=== PATIENT | male | born 1990 | race Caucasian/White ===

== ENCOUNTER 2018-03-03 14:32 | Emergency (ER) | payer OTHER ==
--- NOTE | 2018-03-03 14:42 | PDOC ---
Rapid Medical Evaluation Medical Evaluation: I have performed a brief in-person evaluation of this patient. The patient presents with a chief complaint of: Hx autism; C/O L flank pain; had fever of 100.4 today; mother gave him Tylenol around 12:30 PM; denies dysuria, hematuria, n/v/d Pertinent physical exam findings: In NAD, no CVA tenderness I have ordered the following: UA, UCx The patient will proceed to the ED for further evaluation. 03/03/18 14:38
[2018-03-03 14:43] VITALS: BP 112/77; PULSE 82; TEMP 98.4; BMI 25.6
[2018-03-03 15:48] LABS: URINE APPEARANCE CLEAR; URINE BILIRUBIN NEGATIVE (<2.0 mg/dL); URINE COLOR COLORLESS; URINE GLUCOSE (UA) NEGATIVE (NEGATIVE); URINE KETONE NEGATIVE (NEGATIVE); URINE LEUK ESTERASE NEGATIVE (NEGATIVE); URINE NITRITE NEGATIVE (NEGATIVE); URINE PROTEIN NEGATIVE (NEGATIVE); URINE UROBILINOGEN NEGATIVE mg/dL (0.2-1.0)
--- NOTE | 2018-03-03 17:16 | PDOC ---
History of Present Illness - General Chief Complaint: Back Pain Stated Complaint: PAIN Time Seen by Provider: 03/03/18 16:05 - History of Present Illness Initial Comments: 03/03/18 17:11 27-year-old male presents for evaluation of lower back pain times one day. He states he did have a fever yesterday. Of note he is somewhat of a poor historian with mild MR Past History - Past Medical History Home Medications: Ambulatory Orders NK [No Known Home Medication] 03/03/18 - Suicide/Smoking/Psychosocial Hx Smoking History: Never smoked Have you smoked in the past 12 months: No Information on smoking cessation initiated: No Hx Alcohol Use: No Drug/Substance Use Hx: No Review of Systems - Review of Systems Constitutional: Yes: Fever ABD/GI: No: Nausea, Vomiting : No: Burning, Dysuria, Flank Pain, Hematuria Musculoskeletal: Yes: Back Pain *Physical Exam - Vital Signs Last Vital Signs Temp Pulse Resp BP Pulse Ox 98.4 F 82 20 112/77 99 03/03/18 14:39 03/03/18 14:39 03/03/18 14:39 03/03/18 14:39 03/03/18 14:39 - Physical Exam Comments: 03/03/18 17:12 HEAD: NC/AT EYES: Conjuntiva clear Ears: Canals and TM's normal NOSE: No d/c THROAT: Moist mucous membrances, oral pharanx clear, uvula midline NECK: Supple without adenopathy CARDIAC: S1 S2 LUNGS: CTA Full and Equal breath sounds ABDOMEN: Soft NT ND MS: Full ROM in all joints without edema NEUROLOGIC: No gross sensory or motor deficits, NVID SKIN: Normal color and temperature no lesions or rashes Lumbar spine skin color and temperature are normal. Range of motion is limited. There is moderate right and left paralumbar musculature spasm and tenderness. 5 out of 5 strength in bilateral lower extremities without gross sensorimotor deficits. He is neurovascularly intact. Moderate Sedation - Procedure Monitoring Vital Signs: Procedure Monitoring Vital Signs Temperature 98.4 F 03/03/18 14:39 Pulse Rate 82 03/03/18 14:39 Respiratory Rate 20 03/03/18 14:39 Blood Pressure 112/77 03/03/18 14:39 O2 Sat by Pulse Oximetry (%) 99 03/03/18 14:39 ED Treatment Course - ADDITIONAL ORDERS Additional order review: Laboratory Results 03/03/18 15:16 Urine Color Colorless Urine Appearance Clear Urine pH 6.0 Ur Specific [place] 1.003 L Urine Protein Negative Urine Glucose (UA) Negative Urine Ketones Negative Urine Blood Negative Urine Nitrite Negative Urine Bilirubin Negative Urine Urobilinogen Negative Ur Leukocyte Esterase Negative Medical Decision Making - Medical Decision Making 03/03/18 17:15 Urine is negative. There is a finding on physical examination of tender lumbar spine with palpable spasm. I believe this is musculoskeletal pain. *DC/Admit/Observation/Transfer Diagnosis at time of Disposition: Lumbar strain - Discharge Dispostion Disposition: HOME Condition at time of disposition: Stable Decision to Admit order: No - Referrals Referrals: Gautam Degroot MD [Primary Care Provider] - - Patient Instructions Printed Discharge Instructions: DI for Low Back Pain, Low Back Pain Additional Instructions: He may take Tylenol and Motrin as directed for pain and fever. Return to the emergency room should symptoms worsen or go unresolved. Please follow-up with your primary care physician tomorrow for further evaluation and treatment options again she just symptoms go unresolved return to the emergency room. - Post Discharge Activity
== END 2018-03-03 17:18 | disposition home or self-care (01) ==
LOC: JERFT 14:32 → JER 14:32 → JERFT 17:17
DX: M62.830 Muscle spasm of back (principal); F84.0 Autistic disorder
CPT/HCPCS: 81003; 99281-25

== ENCOUNTER 2019-02-07 13:29 | Emergency (ER) | payer OTHER ==
[2019-02-07 13:34] VITALS: BP 126/75; PULSE 93; TEMP 98.3; BMI 21.1
[2019-02-07] MEDS ORDERED: ACETAMINOPHEN 325 MG TABLET (FP) PO ONE (13:52)
[2019-02-07] MEDS ORDERED: ACETAMINOPHEN 325 MG TABLET (FP) ONE (13:53)
--- NOTE | 2019-02-07 13:57 | PDOC ---
History of Present Illness - General Chief Complaint: Pain Stated Complaint: RIB PAIN Time Seen by Provider: 02/07/19 13:42 History Source: Patient, Parent(s) - History of Present Illness Timing/Duration: reports: other Past History - Past Medical History Allergies/Adverse Reactions: Allergies Allergy/AdvReac Type Severity Reaction Status Date / Time No Known Allergies Allergy Verified 02/07/19 13:31 Home Medications: Ambulatory Orders NK [No Known Home Medication] 03/03/18 COPD: No - Psycho Social/Smoking Cessation Hx Smoking History: Never smoked Have you smoked in the past 12 months: No Information on smoking cessation initiated: No Hx Alcohol Use: No Drug/Substance Use Hx: No Review of Systems - Review of Systems Constitutional: No: Chills, Fever Respiratory: Yes: Cough. No: Shortness of Breath, Wheezing *Physical Exam - Vital Signs Last Vital Signs Temp Pulse Resp BP Pulse Ox 98.3 F 93 H 18 126/75 98 02/07/19 13:32 02/07/19 13:32 02/07/19 13:32 02/07/19 13:32 02/07/19 13:32 - Physical Exam General Appearance: Yes: Appropriately Dressed. No: Apparent Distress HEENT: positive: Normal ENT Inspection, Normal Voice, TMs Normal, Pharynx Normal. negative: Scleral Icterus (R), Scleral Icterus (L) Neck: positive: Supple. negative: Lymphadenopathy (R), Lymphadenopathy (L) Respiratory/Chest: positive: Lungs Clear, Normal Breath Sounds. negative: Respiratory Distress, Wheezing Cardiovascular: positive: Regular Rate, S1, S2 Integumentary: positive: Dry, Warm Neurologic: positive: Fully Oriented, Alert, Normal Mood/Affect Medical Decision Making - Medical Decision Making 02/07/19 13:59 28-year-old male, history of autism, brought in by mother for evaluation after patient developed non-productive cough 3 days ago and now with pleuritic right chest pain. No hemoptysis shortness of breath wheezing fever or chills. No history of pneumonia see exam M/l uri Exam wnl Dc w/ supportive tx Discharge - Discharge Information Problems reviewed: Yes Clinical Impression/Diagnosis: Cough Condition: Good Disposition: HOME - Follow up/Referral Referrals: Gautam Degroot MD [Primary Care Provider] - - Patient Discharge Instructions Patient Printed Discharge Instructions: DI for Viral Upper Respiratory Infection -- Adult - Post Discharge Activity
== END 2019-02-07 14:00 | disposition home or self-care (01) ==
LOC: JERFT 13:29
DX: J06.9 Acute upper respiratory infection, unspecified (principal); B97.89 Other viral agents as the cause of diseases classified elsewhere; F84.0 Autistic disorder
CPT/HCPCS: 99282-25

== ENCOUNTER 2019-03-01 14:25 | Emergency (ER) | payer OTHER ==
[2019-03-01 14:33] VITALS: BP 122/75; PULSE 99; TEMP 98.6; BMI 21.1
[2019-03-01] MEDS ORDERED: IBUPROFEN 600 MG TABLET (FP) PO ONE ×2 (17:07→17:16)
[2019-03-01] MEDS ORDERED: guaiFENesin/D-METHORPHAN HB 10 ML UNIT-DOSE CUPS PO ONE (17:08)
--- NOTE | 2019-03-01 17:08 | PDOC ---
History of Present Illness - General Chief Complaint: Cold Symptoms Stated Complaint: CHEST PAIN Time Seen by Provider: 03/01/19 15:20 History Source: Patient Exam Limitations: No Limitations - History of Present Illness Initial Comments: 03/01/19 17:09 28 year old autistic male with continued coughing and pleuritic chest pain seen last week for the same. As per mother he continues with productive coughing with no fever or chills. Also reports no shortness of breath or history of pneumonia. Mother requesting chest xray. Is this a multiple visit Asthma Patient?: No Timing/Duration: reports: week Severity: reports: mild Possible Cause: Yes: other Modifying Factors: improves with: coughing Associated Symptoms: reports: cough Past History - Travel Traveled outside of the country in the last 30 days: No Close contact w/someone who was outside of country & ill: No - Past Medical History Allergies/Adverse Reactions: Allergies Allergy/AdvReac Type Severity Reaction Status Date / Time No Known Allergies Allergy Verified 03/01/19 14:33 Home Medications: Ambulatory Orders Acetaminophen 500 mg PO Q4HWA #20 tablet 03/01/19 Guaifenesin [Robitussin] 10 ml PO Q8H #1 bottle 03/01/19 Loratadine [Claritin] 10 mg PO DAILY #10 tablet 03/01/19 COPD: No Psychiatric Problems: Yes - Psycho Social/Smoking Cessation Hx Smoking History: Never smoked Have you smoked in the past 12 months: No Hx Alcohol Use: No Drug/Substance Use Hx: No Respiratory Specific PMHX - Complaint Specific PMHX Hx Airway Support: No Hx Smoking Exposure: No Hx Allergic Rhinitis: No Hx Pneumonia: No Hx Pulmonary Embolus: No Review of Systems - Review of Systems Able to Perform ROS?: Yes Is the patient limited Azeri proficient: No Constitutional: No: Chills, Fever, Loss of Appetite, Malaise, Night Sweats HEENTM: No: Eye Pain, Cataracts, Ear Pain, Ear Discharge, Nose Congestion, Throat Pain Respiratory: Yes: Cough. No: Shortness of Breath, SOB with Exertion Cardiac (ROS): No: Chest Pain, Lightheadedness, Palpitations ABD/GI: No: Constipated, Nausea, Poor Appetite, Poor Fluid Intake, Vomiting : No: Burning, Hematuria, Incontinence, Pain, Urgency Musculoskeletal: No: Back Pain, Muscle Pain, Muscle Weakness Integumentary: No: Bruising, Erythema Neurological: No: Headache, Numbness, Paresthesia *Physical Exam - Vital Signs Last Vital Signs Temp Pulse Resp BP Pulse Ox 98.6 F 99 H 18 122/75 99 03/01/19 14:30 03/01/19 14:30 03/01/19 14:30 03/01/19 14:30 03/01/19 14:30 - Physical Exam General Appearance: Yes: Nourished, Appropriately Dressed HEENT: positive: EOMI, RAYNA, Pharynx Normal Neck: positive: Supple. negative: Lymphadenopathy (R), Lymphadenopathy (L) Respiratory/Chest: positive: Lungs Clear Cardiovascular: positive: Regular Rhythm, Regular Rate, Other (chest tenderness) Extremity: positive: Normal Capillary Refill Neurologic: positive: Fully Oriented, Alert ED Treatment Course - RADIOLOGY Radiology Studies Ordered: Category Date Time Status CHEST PA & LAT [RAD] Stat Radiology 03/01/19 16:46 Ordered Medical Decision Making - Medical Decision Making 03/01/19 17:14 16 year old male with medical history of hyperactivity and asthma reports chest tightness and shortness of breath since . As per mother he has been using his pump but continues with occasional coughing and reporting discomfort in his chest. Imp: cough pleuritic chest pain Discharge - Discharge Information Problems reviewed: Yes Clinical Impression/Diagnosis: Bronchitis Condition: Stable Disposition: HOME - Admission No - Additional Discharge Information Prescriptions: Acetaminophen 500 mg PO Q4HWA #20 tablet Guaifenesin [Robitussin] 10 ml PO Q8H #1 bottle Loratadine [Claritin] 10 mg PO DAILY #10 tablet - Follow up/Referral Referrals: Gautam Degroot MD [Primary Care Provider] - Call tomorrow (for follow up appointment ) - Patient Discharge Instructions Patient Printed Discharge Instructions: DI for Acute Bronchitis Additional Instructions: Please use humidifier in home take medication as directed Call primary physician for follow up appointment Drink plenty fluids Print Language: GEORGIAN - Post Discharge Activity Work/Back to School Note: Back to Work
[2019-03-01] MEDS ORDERED: guaiFENesin/D-METHORPHAN HB 10 ML UNIT-DOSE CUPS ONE (17:17)
== END 2019-03-01 17:52 | disposition home or self-care (01) ==
LOC: JERFT 14:25
DX: J40 Bronchitis, not specified as acute or chronic (principal)
CPT/HCPCS: 71046-TC-FY; 99281-25

== ENCOUNTER 2023-02-22 19:51 | Emergency (ER) | payer OTHER ==
[2023-02-22 19:56] VITALS: BP 121/70; PULSE 72; RESP 18; TEMP 97.5; BMI 23.5
[2023-02-22] MEDS ORDERED: ONDANSETRON *ODT* 4 MG TABLET SL ONE (20:14)
[2023-02-22] MEDS ORDERED: LIDOCAINE 4% PATCH TP ONE ×2 (20:18→20:27)
[2023-02-22] MEDS ORDERED: ONDANSETRON *ODT* 4 MG TABLET ONE (20:27)
[2023-02-22 21:00] LABS: EPI CELLS >36 /uL (0-25.1); HYALINE CASTS 5 /uL (0-3.1); URINE APPEARANCE CLOUDY; URINE BACTERIA 50 /uL (0-1359); URINE BILIRUBIN NEGATIVE (NEGATIVE); URINE COLOR YELLOW; URINE GLUCOSE (UA) NEGATIVE (NEGATIVE); URINE KETONE 3+ (NEGATIVE); URINE LEUK ESTERASE NEGATIVE (NEGATIVE); URINE NITRITE NEGATIVE (NEGATIVE); URINE PROTEIN 1+ (NEGATIVE); URINE UROBILINOGEN 0.2 mg/dL (0.2-1.0)
[2023-02-22] MEDS ORDERED: KETOROLAC TROMETHAMINE 15 MG/ML VIAL IVPUSH ONE (21:06)
[2023-02-22] MEDS ORDERED: KETOROLAC TROMETHAMINE 15 MG/ML VIAL ONE (21:10)
[2023-02-22 21:26] LABS: BASO % 0.4 % (0-2.0); EOS % 0.4 % (0-4.5); HEMATOCRIT 45.6 % (35.4-49); HEMOGLOBIN 15.8 GM/dL (11.7-16.9); LYMPH % 11.8 % (8-40); MCH 29.4 pg (25.7-33.7); MCHC 34.5 g/dl (32.0-35.9); MEAN CELL VOLUME 85.1 fl (80-96); MEAN PLT VOLUME 8.9 fl (7.5-11.1); MONO % 7.1 % (3.8-10.2); NEUT % 80.3 % (42.8-82.8); PLATELET COUNT 233 10^3/uL (134-434); RBC 5.36 M/mm3 (4.00-5.60); RDW 13.1 % (11.9-15.9); WHITE BLOOD COUNT 9.8 K/mm3 (4.0-10.0)
[2023-02-22 21:34] LABS: YEAST NONE SEEN (NEGATIVE)
[2023-02-22 21:45] LABS: POTASSIUM 3.7 mmol/L (3.5-5.1)
[2023-02-22 21:49] LABS: CALCIUM 10.4 mg/dL (8.5-10.1)
[2023-02-22 21:50] LABS: ALBUMIN 4.5 g/dl (3.4-5.0); BLOOD UREA NITROGEN 17.2 mg/dL (7-18)
[2023-02-22 21:53] LABS: CREATININE 1.4 mg/dL (0.55-1.3)
[2023-02-22 21:54] LABS: BILIRUBIN,TOTAL 0.6 mg/dL (0.2-1); TOT PROT 8.3 g/dl (6.4-8.2)
[2023-02-22] MEDS ORDERED: LIDOCAINE PATCH REMOVAL MC SCH (22:00)
[2023-02-22] MEDS ORDERED: SODIUM CHLORIDE 0.9% 500 ML INFUS.BAG IV ONE ×2 (22:26→23:58)
== END 2023-02-23 01:09 | disposition home or self-care (01) ==
LOC: JER 19:51 → JERFT 19:51 → JER 02-23 01:09
PROC: 3E0333Z Introduction of Anti-inflammatory into Peripheral Vein, Percutaneous Approach (ICD-10-PCS; principal; 2023-02-22)
DX: M54.50 Low back pain, unspecified (principal); R11.10 Vomiting, unspecified; N20.0 Calculus of kidney
CPT/HCPCS: 36415; 72100-TC-FY; 74176-TC; 80053; 81003; 83690; 85025; 96374; 99285-25; Q0162

== ENCOUNTER 2024-05-18 09:59 | Emergency (ER) | payer OTHER ==
[2024-05-18 10:22] VITALS: BP 108/67; PULSE 64; RESP 18; TEMP 97.9; BMI 22.2
[2024-05-18] MEDS ORDERED: ACETAMINOPHEN INJECTION 100 ML ONE (11:36)
[2024-05-18] MEDS: ACETAMINOPHEN 1000 MG/100 ML BAG IVPB ONE (11:52)
[2024-05-18] MEDS: SODIUM CHLORIDE 0.9% 500 ML INFUS.BAG IV ONE (11:52)
[2024-05-18 12:20] LABS: ABSOLUTE IMMATURE GRANULOCYTES 0.01 x10^3/uL (0.0-0.031); BASOPHILS # 0.02 x10^3/uL (0.01-0.08); EOSINOPHIL % 3.9 % (0.8-7.0); EOSINOPHILS # 0.17 x10^3/uL (0.04-0.54); HEMATOCRIT 44.6 % (40.1-51.0); HEMOGLOBIN 15.4 g/dL (13.7-17.5); MCHC 34.5 g/dl (32.3-36.5); MEAN CELL VOLUME 84.8 fl (79.0-92.2); MEAN PLT VOLUME 10.9 fl (9.4-12.4); MONOCYTE # 0.39 x10^3/uL (0.30-0.82); MONOCYTE % 8.8 % (5.3-12.2); PLATELET COUNT 188 x10^3/uL (163-337); RDW 12.9 % (12.0-15.6)
[2024-05-18 12:24] LABS: URINE APPEARANCE CLEAR; URINE BILIRUBIN NEGATIVE (NEGATIVE); URINE COLOR YELLOW; URINE GLUCOSE (UA) NEGATIVE (NEGATIVE); URINE KETONE NEGATIVE (NEGATIVE); URINE LEUK ESTERASE NEGATIVE (NEGATIVE); URINE NITRITE NEGATIVE (NEGATIVE); URINE PROTEIN NEGATIVE (NEGATIVE); URINE UROBILINOGEN 0.2 mg/dL (0.2-1.0)
[2024-05-18 12:44] LABS: POTASSIUM 4.2 mmol/L (3.5-5.1)
[2024-05-18 12:46] LABS: CALCIUM 9.6 mg/dL (8.5-10.1)
[2024-05-18 12:47] LABS: ALBUMIN 4.3 g/dl (3.4-5.0); BLOOD UREA NITROGEN 17.2 mg/dL (7-18)
[2024-05-18 12:52] LABS: BILIRUBIN,TOTAL 0.6 mg/dL (0.2-1)
== END 2024-05-18 15:13 | disposition home or self-care (01) ==
LOC: JER 09:59
PROC: 3E033NZ Introduction of Analgesics, Hypnotics, Sedatives into Peripheral Vein, Percutaneous Approach (ICD-10-PCS; principal; 2024-05-18)
DX: R10.9 Unspecified abdominal pain (principal); R00.1 Bradycardia, unspecified
CPT/HCPCS: 36415; 74177-TC; 80053; 81003; 85025; 87086; 93005; 93010; 96374; 99285-25; J0131; Q9967

== ENCOUNTER 2024-09-12 14:36 | Emergency (ER) | payer OTHER ==
[2024-09-12 14:46] VITALS: RESP 18; TEMP 97.9; BMI 20.7
[2024-09-12 15:32] VITALS: BP 100/64; PULSE 87
[2024-09-12] MEDS ORDERED: ONDANSETRON *ODT* 4 MG TABLET ONE (15:34)
[2024-09-12] MEDS: ONDANSETRON *ODT* 4 MG TABLET SL ONE (15:35)
== END 2024-09-12 17:08 | disposition home or self-care (01) ==
LOC: JER 14:36
DX: R11.2 Nausea with vomiting, unspecified (principal); T78.1XXA Other adverse food reactions, not elsewhere classified, initial encounter
CPT/HCPCS: 99283-25; Q0162